=== PATIENT | male | born 1960 | race Two or more races ===

== ENCOUNTER 2023-01-10 06:53 | Emergency (ER) | payer MEDICARE, MEDICAID ==
[~2023-01-10] VITALS: Ht 177.8 cm; Wt 90.0 kg
[2023-01-10 06:55] VITALS: BP 182/96; PULSE 96; RESP 20; TEMP 98.2; O2SAT 98
[2023-01-10] MEDS ORDERED: ACETAMINOPHEN WITH CODEINE 300/30MG TABLET PO ONE (07:00)
[2023-01-10] MEDS ORDERED: TOPUD PO (08:11)
== END 2023-01-10 08:38 | disposition home or self-care (01) ==
LOC: ER 06:53
DX: S29.9XXA Unspecified injury of thorax, initial encounter (principal); E11.9 Type 2 diabetes mellitus without complications; I10 Essential (primary) hypertension; F17.200 Nicotine dependence, unspecified, uncomplicated; V49.60XA Unspecified car occupant injured in collision with unspecified motor vehicles in traffic accident, initial encounter; Y93.89 Activity, other specified; Y92.89 Other specified places as the place of occurrence of the external cause; Y99.8 Other external cause status
CPT/HCPCS: 71045; 93005; 99283